=== PATIENT | female | born 1970 | race Hispanic/Latino ===

== ENCOUNTER 2024-09-25 23:18 | Emergency (ER) | payer SELFPAY ==
[2024-09-25 23:27] VITALS: BP 124/58; PULSE 80; RESP 20; TEMP 36.6; O2SAT 100; BMI 23.4
--- NOTE | 2024-09-25 23:46 | ED.HA ---
HPI - Headache General Chief Complaint: Headache Stated Complaint: CERDA and dizziness since Saturday Time Seen by Provider: 09/25/24 23:46 Mode of arrival: Ambulatory History of Present Illness HPI Narrative: (history of via at bedside, patient/ declined use of professional translation services) 54-year-old female with 3 days duration of bitemporal headache, some dizziness, diarrhea without black or red color. No fevers or chills. No focal weakness to face arm or leg. No focal numbness to face arm or leg. No shaking or seizure activity. No cough or shortness of breath, denies chest pain. Denies frequency of urination or painful urination. Related Data Previous Rx's Medication Instructions Recorded potassium chloride 10 mEq 10 meq PO DAILY #7 tabs 09/26/24 tablet,extended release(part/cryst) Allergies Allergy/AdvReac Type Severity Reaction Status Date / Time prochlorperazine AdvReac Severe Palpitation Verified 09/26/24 01:56 [From Compazine] s diphenhydramine AdvReac Intermediate Shakiness Verified 09/26/24 02:08 Patient History Social History Smoking Status: Never smoker Smoking Status: Never smoker Exam Narrative Exam Narrative: GENERAL: Well-developed patient, in mild distress. HEAD: Atraumatic. Normocephalic. EYES: Pupils equal round and reactive. Extraocular motions intact. No scleral icterus. No injection or drainage. ENT: Nose without bleeding, purulent drainage. Throat without erythema, tonsillar hypertrophy or exudate. Airway patent. NECK: Trachea midline. Non tender CARDIOVASCULAR: Regular rate and rhythm without murmurs, gallops, or rubs. RESPIRATORY: Clear to auscultation. Breath sounds equal bilaterally. No wheezes, rales, or rhonchi. GASTROINTESTINAL: Abdomen soft, non-tender, nondistended. EXTREMITIES: No edema or joint tenderness. BACK: Nontender without deformity or crepitance. No flank tenderness. NEURO: AOx3. Motor functions grossly nonfocal SKIN: No rash or erythema of visible areas Initial Vital Signs Initial Vital Signs: Vital Signs Temperature 97.8 F 09/25/24 23:27 Pulse Rate 80 09/25/24 23:27 Respiratory Rate 20 09/25/24 23:27 Blood Pressure 124/58 L 09/25/24 23:27 Pulse Oximetry 100 09/25/24 23:27 Oxygen Delivery Method Room Air 09/25/24 23:27 Course Orders Ordered: ED Orders 09/26/24 01:28 XR chest 1V Stat Complete Blood Count AUTO DIFF Stat Comprehensive Metabolic Panel Stat Lipase Stat Troponin & CK Cardiac Panel Stat EKG-12 Lead Stat 09/26/24 01:30 CT head/brain wo con Stat 09/26/24 02:17 Urinalysis and Microscopic Stat 09/26/24 02:22 Covid-19 + FLU A/B + RSV - PCR Stat Folate Stat Iron Stat RETIC [Reticulocyte Count, Percent] Stat Vitamin B12 Stat Discontinued Medications Diazepam (Diazepam 5 Mg Tablet) 5 mg PO NOW ONE Stop: 09/26/24 05:00 Last Admin: 09/26/24 05:08 Dose: 5 mg Documented By: Diphenhydramine HCl (Diphenhydramine 50 Mg/Ml Vial) 50 mg IV NOW ONE Stop: 09/26/24 01:30 Last Admin: 09/26/24 01:45 Dose: 50 mg Documented By: Sodium Chloride (Normal Saline 0.9%) 1,000 mls @ 1,000 mls/hr IV BOLUS ONE Stop: 09/26/24 02:30 Last Infusion: 09/26/24 02:51 Dose: Infused Documented By: Admin: 09/26/24 01:45 Dose: 1,000 mls/hr Documented By: POTASSIUM CHLORIDE IN WATER (Potassium Cl 10 Meq/100 Ml Miguelina) 10 meq in 100 mls @ 100 mls/hr IV Q1H JAZMINE Stop: 09/26/24 04:44 Last Infusion: 09/26/24 05:19 Dose: Infused Documented By: Admin: 09/26/24 04:15 Dose: 100 mls/hr Documented By: Infusion: 09/26/24 04:10 Dose: Infused Documented By: Infusion: 09/26/24 03:10 Dose: 100 mls/hr Documented By: Admin: 09/26/24 02:56 Dose: 50 mls/hr Documented By: AB Sodium Chloride (Normal Saline 0.9%) 1,000 mls @ 500 mls/hr IV BOLUS ONE Stop: 09/26/24 05:08 Last Infusion: 09/26/24 05:20 Dose: Infused Documented By: Admin: 09/26/24 03:10 Dose: 500 mls/hr Documented By: Lorazepam (Lorazepam 2 Mg/Ml Inj) 1 mg IV NOW ONE Stop: 09/26/24 03:54 Last Admin: 09/26/24 04:00 Dose: 1 mg Documented By: AB Potassium Chloride (Potassium Chloride 20 Meq/15 Ml Udc) 40 meq PO NOW ONE Stop: 09/26/24 02:46 Last Admin: 09/26/24 02:55 Dose: 40 meq Documented By: AB Prochlorperazine (Prochlorperazine 10 Mg/2 Ml Vial) 5 mg IV NOW ONE Stop: 09/26/24 01:30 Last Admin: 09/26/24 01:45 Dose: 5 mg Documented By: Vital Signs Vital signs: Vital Signs - 8 hr 09/25/24 23:27 09/25/24 23:56 09/25/24 23:56 Temperature 97.8 F Pulse Rate 80 74 Respiratory Rate 20 Blood Pressure 124/58 L 106/56 L Pulse Oximetry 100 100 Oxygen Delivery Method Room Air Room Air 09/26/24 00:00 09/26/24 00:00 09/26/24 00:31 Temperature Pulse Rate 72 72 Respiratory Rate Blood Pressure 117/58 L Pulse Oximetry 100 100 Oxygen Delivery Method 09/26/24 00:31 09/26/24 01:01 09/26/24 01:01 Temperature Pulse Rate 68 Respiratory Rate Blood Pressure 143/60 H 100/53 L Pulse Oximetry 100 Oxygen Delivery Method Room Air 09/26/24 01:12 09/26/24 01:30 09/26/24 01:30 Temperature Pulse Rate 74 73 Respiratory Rate Blood Pressure 113/58 L Pulse Oximetry 96 100 Oxygen Delivery Method 09/26/24 01:47 09/26/24 01:47 09/26/24 02:16 Temperature Pulse Rate 72 79 Respiratory Rate Blood Pressure 123/60 Pulse Oximetry 100 98 Oxygen Delivery Method Room Air 09/26/24 02:31 09/26/24 02:31 09/26/24 03:28 Temperature Pulse Rate 80 76 Respiratory Rate 24 Blood Pressure 107/54 L Pulse Oximetry 98 100 Oxygen Delivery Method Room Air 09/26/24 04:00 09/26/24 04:00 09/26/24 04:31 Temperature Pulse Rate 81 86 Respiratory Rate 30 H 35 H Blood Pressure 117/57 L Pulse Oximetry 100 100 Oxygen Delivery Method 09/26/24 04:31 09/26/24 05:00 09/26/24 05:00 Temperature Pulse Rate 84 Respiratory Rate 27 H Blood Pressure 114/72 128/62 Pulse Oximetry 98 Oxygen Delivery Method 09/26/24 05:01 Temperature Pulse Rate 84 Respiratory Rate 23 Blood Pressure Pulse Oximetry 98 Oxygen Delivery Method Room Air MDM - Headache Lab Data Attestation: I reviewed the patient's lab results. Lab results narrative: White blood cell count 9800, hemoglobin 7.7 low without comparison studies, platelets [id number] adequate. Basic metabolic panel with normal renal function, normal serum CO2, glucose 90, potassium low 2.8 noted. Liver functions unremarkable. Urine dip negative. 09/25/24 23:50 09/25/24 23:50 Labs: Lab Results 09/25/24 09/25/24 09/25/24 Range/Units 02:22 23:44 23:50 WBC 9.8 (4.5-11.0) X10^3/uL RBC 4.48 (4.0-5.2) X10^6/uL Hgb 7.7 L (12.0-16.0) g/dL Hct 25.5 L (36-46) % MCV 57.1 L (80-100) fL MCH 17.2 L (26-34) PG MCHC 30.1 (30-36) % RDW 19.7 H (11.6-14.8) % Plt Count 347 (150-400) X10^3/uL Neut % (Auto) 63.7 (50-75) % Lymph % (Auto) 23.8 L (25-40) % Wilkes % (Auto) 9.2 (3-14) % Eos % (Auto) 2.7 (2-4) % Baso % (Auto) 0.6 (0-2) % Neut # (Auto) 6200 (5407-9632) /uL Lymph # (Auto) 2300 (7072-7160) /uL Wilkes # (Auto) 900 (0-900) /uL Eos # (Auto) 300 (0-450) /uL Baso # (Auto) 100 (0-100) /uL Platelet Estimate Adequate on smear RBC Morphology See below Hypochromasia 1+ H Anisocytosis 2+ H Microcytosis 3+ H Target Cells 1+ H Percent Retic 1.9 (1.1-2.6) % Sodium 137 (137-145) mmol/L Potassium 2.8 L (3.4-5.1) mmol/L Chloride 104 (98-107) mmol/L Carbon Dioxide 24 (22-32) mmol/L BUN 11 (7-17) mg/dL Creatinine 0.57 (0.52-1.04) mg/dL Estimated GFR > 60 (>60) mL/min BUN/Creatinine Ratio 19.3 (6-22) Glucose 90 (70-100) mg/dL Calcium 8.7 (8.4-10.2) mg/dL Iron 17 L (37-170) ug/dL Total Bilirubin 0.3 (0.2-1.3) mg/dL AST 36 (14-36) IU/L ALT 27 (<35) IU/L Alkaline Phosphatase 109 (38-126) U/L Total Creatine Kinase 68 (30-135) U/L Troponin I < 0.012 (0.01-0.034) ng/mL Total Protein 7.7 (6.3-8.2) g/dL Albumin 4.2 (3.5-5.0) g/dL Globulin 3.5 (1.7-4.1) g/dL Albumin/Globulin Ratio 1.2 (1.0-2.8) Lipase 53 (23-300) U/L Vitamin B12 395 (239-931) pg/mL Folate 10.2 (2.76-20.0) ng/mL Urine Color Yellow Urine Appearance Clear Urine pH 6.0 (4.5-8.0) Ur Specific [place] <=1.005 (1.000-1.035) Urine Protein Negative (Negative) Urine Glucose (UA) Negative (Negative) g/dL Urine Ketones Negative (NEGATIVE) Urine Occult Blood Negative (Negative) Urine Nitrate Negative (Negative) Urine Bilirubin Negative (NEGATIVE) Urine Urobilinogen 0.2 (0.2) E.U./dL Ur Leukocyte Esterase Negative (NEGATIVE) Urine RBC None seen (0-5/HPF) Urine WBC None seen (0-5/HPF) Ur Squamous Epith Cells 0-1 /hpf (0-5/HPF) Urine Bacteria None seen (None) Ur Culture Indicated? Cult not indicated Vol Urine Centrifuged 10ml (spun) SARS-CoV-2 (PCR) (Negative) Influenza A (RT-PCR) (NEGATIVE) Influenza B (RT-PCR) (NEGATIVE) RSV (PCR) (Negative) 09/26/24 Range/Units 02:22 WBC (4.5-11.0) X10^3/uL RBC (4.0-5.2) X10^6/uL Hgb (12.0-16.0) g/dL Hct (36-46) % MCV (80-100) fL MCH (26-34) PG MCHC (30-36) % RDW (11.6-14.8) % Plt Count (150-400) X10^3/uL Neut % (Auto) (50-75) % Lymph % (Auto) (25-40) % Wilkes % (Auto) (3-14) % Eos % (Auto) (2-4) % Baso % (Auto) (0-2) % Neut # (Auto) (4857-0825) /uL Lymph # (Auto) (1915-3860) /uL Wilkes # (Auto) (0-900) /uL Eos # (Auto) (0-450) /uL Baso # (Auto) (0-100) /uL Platelet Estimate RBC Morphology Hypochromasia Anisocytosis Microcytosis Target Cells Percent Retic (1.1-2.6) % Sodium (137-145) mmol/L Potassium (3.4-5.1) mmol/L Chloride (98-107) mmol/L Carbon Dioxide (22-32) mmol/L BUN (7-17) mg/dL Creatinine (0.52-1.04) mg/dL Estimated GFR (>60) mL/min BUN/Creatinine Ratio (6-22) Glucose (70-100) mg/dL Calcium (8.4-10.2) mg/dL Iron (37-170) ug/dL Total Bilirubin (0.2-1.3) mg/dL AST (14-36) IU/L ALT (<35) IU/L Alkaline Phosphatase (38-126) U/L Total Creatine Kinase (30-135) U/L Troponin I (0.01-0.034) ng/mL Total Protein (6.3-8.2) g/dL Albumin (3.5-5.0) g/dL Globulin (1.7-4.1) g/dL Albumin/Globulin Ratio (1.0-2.8) Lipase (23-300) U/L Vitamin B12 (239-931) pg/mL Folate (2.76-20.0) ng/mL Urine Color Urine Appearance Urine pH (4.5-8.0) Ur Specific [place] (1.000-1.035) Urine Protein (Negative) Urine Glucose (UA) (Negative) g/dL Urine Ketones (NEGATIVE) Urine Occult Blood (Negative) Urine Nitrate (Negative) Urine Bilirubin (NEGATIVE) Urine Urobilinogen (0.2) E.U./dL Ur Leukocyte Esterase (NEGATIVE) Urine RBC (0-5/HPF) Urine WBC (0-5/HPF) Ur Squamous Epith Cells (0-5/HPF) Urine Bacteria (None) Ur Culture Indicated? Vol Urine Centrifuged SARS-CoV-2 (PCR) Negative (Negative) Influenza A (RT-PCR) Flu a negative (NEGATIVE) Influenza B (RT-PCR) Flu b negative (NEGATIVE) RSV (PCR) Negative (Negative) Urine Dip Bedside Urine Glucose Negative Bedside Urine Bilirubin - Negative Bedside Urine Ketone - Negative Urine Specific [place] 1.015 Bedside Urine Occult Blood - Negative Bedside Urine pH 6.0 Bedside Urine Protein - Negative Bedside Urine Urobilinogen - Negative Bedside Urine Nitrite - Negative Bedside Urine Leukocytes - Negative Esterase Imaging Data CT scan - head: Radiologist's Impression: [place] [address] CT Scan Report Signed Patient: Traci Blanchard MR#: [id number] : 1970 Acct:[id number] Age/Sex: 54 / F Date of Service: 09/26/24 Loc: ED Accession Number: [id number] Procedure: CT head/brain wo con Ordering Provider: Julio Esquivel MD PROCEDURE: CT HEAD/BRAIN WO CON INDICATIONS: CERDA, dizzy TECHNIQUE: Noncontrast 4.5 mm thick angled axial sections acquired from the foramen magnum to the vertex, with coronal and sagittal reformats. For radiation dose reduction, the following was used: automated exposure control, adjustment of mA and/or kV according to patient size. COMPARISON: None. FINDINGS: Image quality: Diagnostic. CSF spaces: Basal cisterns are patent. No extra-axial fluid collections. Ventricles are normal in size and shape. Brain: No midline shift. No intracranial masses or hemorrhage. Hale-white matter interface is normal. Punctate rounded hyperdensity in the right frontal lobe. Skull and face: Calvarium and visualized facial bones are intact, without suspicious lesions. Sinuses: Visualized sinuses and mastoids are clear. IMPRESSION: Punctate hyperdensity appearing most consistent with calcification Dictated by: Ivone Dai M.D. on 09/26/2024 at 1:50 Approved by: Ivone Dai M.D. on 09/26/2024 at 1:51 ECG Data Attestation: I personally reviewed and interpreted this ECG as follows: Interpretation: Normal sinus rhythm with a rate of 73, right bundle branch block pattern present. OK 108, QRS 140, QTC 464. MDM Narrative Medical decision making narrative: 54-year-old female with bitemporal headache, watery nonbloody stools, some dizziness, unremarkable exam, afebrile, sirs screen negative. EKG without obvious ischemic changes. CT head ordered. IV fluid bolus. Serum studies unremarkable. Urine dip negative. Chest x-ray no acute changes, see radiology report. Potassium low, IV and oral repletion initiated. Hemoglobin 7.7 noted, other cell lines unremarkable, no obvious blood loss on exam or by history. CT head showed punctate calcification only, no acute changes, see radiology report Patient had improvement and resolution of headache after IV Compazine, however she did have jitteriness, akathisia like symptoms, despite concomitant IV Benadryl. Persisting symptoms, we will add IV Ativan. 0500, still having jitteriness akathisia like symptoms, we will add oral Valium 5 mg Symptoms improved, discharged home with . Follow up for recheck of potassium level and review of symptoms advised. Patient also advised to consider listing Compazine as a medication allergy, adverse reaction Discharge Plan Departure Patient Disposition: Home Clinical Impression: Headache, Diarrhea, Anemia, Hypokalemia, Adverse drug reaction Instructions: DI for Headache Activity Restrictions/Additional Instructions: Headache and recent diarrhea. IV fluids given. CT head scan showed small tiny punctate area of calcification, no acute changes. Chest x-ray unremarkable. Lab study showed very low potassium, IV and oral potassium repletion given. Consider further potassium for the next few days on discharge, recheck potassium level in follow up with your regular doctor. IV Compazine with Benadryl given, however subsequent jitteriness occurred, likely akathisia reaction side effect from the Compazine. IV Ativan given to help combat this effect. Please consider listing Compazine allergy if asked for any future drug reactions/allergies. Avoid Compazine in the future. You had anemia, low blood levels, unclear cause, no obvious bleeding symptoms by history. Iron blood test studies also requested. Further follow up as an outpatient for now with your regular provider. Your headache did actually go away with Compazine, however please avoid Compazine in the future, as you can have a similar/worse adverse drug reaction. Follow up with your regular doctor, encouraged oral hydration, continue to take potassium for the next few days. Recheck potassium level in follow up. Take Tylenol and or Motrin as needed for discomfort. Return earlier to this/nearest emergency department for any change worsening symptoms or any concerns prior Prescriptions: New potassium chloride 10 mEq tablet,ER particles/crystals 10 meq PO DAILY Qty: 7 0RF Referrals: Miscellaneous,Doctor, [Primary Care Provider] - Stand Alone Forms: Patient Portal/API/Survey, Work Release Note
[2024-09-25 23:56] VITALS: BP 106/56; PULSE 74; O2SAT 100
[2024-09-26] VITALS (13 sets, daily range): BP systolic 100–143; BP diastolic 53–72; PULSE 68–86; RESP 23–35; O2SAT 96–100
--- NOTE | 2024-09-26 01:28 | DI.RAD.S_ITS ---
PROCEDURE: XR CHEST 1V INDICATIONS: chest pain TECHNIQUE: One view of the chest was acquired. COMPARISON: None. FINDINGS: Surgical changes and devices: None. Lungs and pleura: Lungs are clear. No pleural effusions or pneumothorax. Mediastinum: Mediastinal contours appear normal. Heart size is enlarged. Bones and chest wall: No suspicious bony lesions. Overlying soft tissues appear unremarkable. IMPRESSION: No acute pulmonary process. Dictated by: Ivone Dai M.D. on 09/26/2024 at 1:51 Approved by: Ivone Dai M.D. on 09/26/2024 at 1:51
--- NOTE | 2024-09-26 01:30 | DI.CT.S_ITS ---
PROCEDURE: CT HEAD/BRAIN WO CON INDICATIONS: CERDA, dizzy TECHNIQUE: Noncontrast 4.5 mm thick angled axial sections acquired from the foramen magnum to the vertex, with coronal and sagittal reformats. For radiation dose reduction, the following was used: automated exposure control, adjustment of mA and/or kV according to patient size. COMPARISON: None. FINDINGS: Image quality: Diagnostic. CSF spaces: Basal cisterns are patent. No extra-axial fluid collections. Ventricles are normal in size and shape. Brain: No midline shift. No intracranial masses or hemorrhage. Hale-white matter interface is normal. Punctate rounded hyperdensity in the right frontal lobe. Skull and face: Calvarium and visualized facial bones are intact, without suspicious lesions. Sinuses: Visualized sinuses and mastoids are clear. IMPRESSION: Punctate hyperdensity appearing most consistent with calcification Dictated by: Ivone Dai M.D. on 09/26/2024 at 1:50 Approved by: Ivone Dai M.D. on 09/26/2024 at 1:51
--- NOTE | 2024-09-26 01:36 | EKG_ITS ---
[id number], [place] [address] Test Date: 2024-09-26 Pat Name: Traci Blanchard Department: [facility] Room: Gender: Female Monotype Setter: ITA : 1970 Requested By: Order Number: [id number] Reading MD: Sawyer Loving Measurements Intervals [place] Rate: 73 P: 52 IL: 108 QRS: -4 QRSD: 140 T: 34 QT: 422 QTc: 464 Interpretive Statements Sinus rhythm with short [place] Right bundle branch block Electronically Signed On 09-28-2024 9:42:46 PST by Sawyer Loving
[2024-09-26] MEDS: PROCHLORPERAZINE 10 MG/2 ML VIAL 5 MG IV (01:45)
[2024-09-26] MEDS: SODIUM CHLORIDE 0.9% 1,000 ML 1000 ML IV (01:45)
[2024-09-26] MEDS: diphenhydrAMINE 50 MG/ML VIAL IV (01:45)
[2024-09-26 02:06] LABS: Add Manual Diff / Slide Review NO; Basophils Absolute Auto 100 /uL (0-100); Basophils Percent Auto 0.6 % (0-2); Eosinophils Absolute Auto 300 /uL (0-450); Eosinophils Percent Auto 2.7 % (2-4); Hematocrit 25.5 % (36-46); Hemoglobin 7.7 g/dL (12.0-16.0); Lymphocytes Absolute Auto 2300 /uL (1100-4500); Lymphocytes Percent Auto 23.8 % (25-40); Mean Corpuscular HGB Conc 30.1 % (30-36); Mean Corpuscular Hemoglobin 17.2 PG (26-34); Mean Corpuscular Volume 57.1 fL (80-100); Monocytes Absolute Auto 900 /uL (0-900); Monocytes Percent Auto 9.2 % (3-14); Neutrophils Absolute Auto 6200 /uL (1500-7000); Neutrophils Percent Auto 63.7 % (50-75); Platelet Count 347 X10^3/uL (150-400); Red Blood Cell Count 4.48 X10^6/uL (4.0-5.2); Red Cell Distribution Width 19.7 % (11.6-14.8); White Blood Cell Count 9.8 X10^3/uL (4.5-11.0)
[2024-09-26 02:09] LABS: Alanine Aminotransferase 27 IU/L (<35); Albumin 4.2 g/dL (3.5-5.0); Albumin Globulin Ratio 1.2 (1.0-2.8); Alkaline Phosphatase 109 U/L (38-126); Aspartate Aminotransferase 36 IU/L (14-36); BUN Creatinine Ratio 19.3 (6-22); Bilirubin Total 0.3 mg/dL (0.2-1.3); Blood Urea Nitrogen 11 mg/dL (7-17); Calcium 8.7 mg/dL (8.4-10.2); Carbon Dioxide 24 mmol/L (22-32); Chloride 104 mmol/L (98-107); Creatine Kinase 68 U/L (30-135); Estimated Glomerular Filt Rate > 60 mL/min (>60); Globulin 3.5 g/dL (1.7-4.1); Glucose 90 mg/dL (70-100); HEMOLYSIS < 15 (0-50); Lipase 53 U/L (23-300); Potassium 2.8 mmol/L (3.4-5.1); Sodium 137 mmol/L (137-145); Total Protein 7.7 g/dL (6.3-8.2)
[2024-09-26 02:21] LABS: Troponin I < 0.012 ng/mL (0.01-0.034)
[2024-09-26 02:32] LABS: Appearance Urine UA CLEAR; Bilirubin Urine UA NEGATIVE (NEGATIVE); Color Urine UA YELLOW; Glucose Urine UA NEGATIVE (Negative); Ketones Urine UA NEGATIVE (NEGATIVE); Leukocyte Esterase Urine UA NEGATIVE (NEGATIVE); Nitrite Urine UA NEGATIVE (Negative); Occult Blood Urine UA NEGATIVE (Negative); Protein Urine UA NEGATIVE (Negative); Specific Gravity Urine UA <=1.005 (1.000-1.035); Urobilinogen Urine UA 0.2 E.U./dL (0.2)
[2024-09-26 02:40] LABS: Iron 17 ug/dL (37-170)
[2024-09-26 02:41] LABS: Bacteria Urine None Seen; Culture Indicated Urine Cult Not Indicated; RBC Urine None Seen (0-5/HPF); Squamous Epithelial Cell Urine 0-1 /HPF (0-5/HPF); Urine Volume 10mL (spun); WBC Urine None Seen (0-5/HPF)
[2024-09-26] MEDS: POTASSIUM CHLORIDE 20 MEQ/15 ML UDC 40 MEQ PO (02:55)
[2024-09-26] MEDS: POTASSIUM CHLORIDE IN WATER 10 MEQ/100 ML PIGGYBACK 50 MEQ IV (02:56)
[2024-09-26 03:00] LABS: Anisocytosis 2+; Hypochromasia 1+; Microcytosis 3+; Platelet Estimate Adequate on smear; Target Cells 1+
[2024-09-26 03:01] LABS: Reticulocyte Count, Percent 1.9 % (1.1-2.6)
[2024-09-26 03:08] LABS: Influenza A - CEPHEID Flu A NEGATIVE (NEGATIVE); Influenza B - CEPHEID Flu B NEGATIVE (NEGATIVE); Respiratory Syncytial Virus Negative (Negative)
[2024-09-26 03:09] LABS: COVID-19 CEPHEID 4-PLEX PCR Negative (Negative)
[2024-09-26] MEDS: SODIUM CHLORIDE 0.9% 1,000 ML 500 ML IV (03:10)
[2024-09-26 03:47] LABS: Folate 10.2 ng/mL (2.76-20.0); Vitamin B12 395 pg/mL (239-931)
[2024-09-26] MEDS: LORazepam 2 MG/ML INJ 1 MG IV (04:00)
[2024-09-26] MEDS: POTASSIUM CHLORIDE IN WATER 10 MEQ/100 ML PIGGYBACK 100 MEQ IV (04:15)
--- NOTE | 2024-09-26 05:03 | PC.NURSE ---
Pt headache has improved greatly but still having side effects from diphenhydramine, prochlorperazine. Provider notified, new meds ordered.
[2024-09-26] MEDS: diazePAM 5 MG TABLET PO (05:08)
== END 2024-09-26 05:24 | disposition home or self-care (01) ==
PROVIDERS: Emergency Provider Emergency Medicine
DX: R51.9 Headache, unspecified (principal); R42 Dizziness and giddiness; R19.7 Diarrhea, unspecified; D64.9 Anemia, unspecified; E87.6 Hypokalemia; T78.40XA Allergy, unspecified, initial encounter
CPT/HCPCS: 0241U; 36415; 70450; 71045; 80053; 81001; 81003; 82550; 82607; 82746; 83540; 83690; 84484; 85025; 85045; 93005; 96361; 96365; 96366; 96375; 99284; J0780; J1200; J2060